=== PATIENT | female | born 1950 | race Caucasian/White ===

== ENCOUNTER 2022-01-21 12:49 | Emergency (ER) | payer MEDICARE, BC ==
[~2022-01-21] VITALS: Ht 162.6 cm; Wt 109.1 kg
[2022-01-21] MEDS ORDERED: CRUTCHES MC (16:09)
[2022-01-21] MEDS ORDERED: NORCO 325 MG-51 TAB PO (16:09)
[2022-01-21 17:10] VITALS: BP 137/80; PULSE 71; TEMP 98.1
== END 2022-01-21 17:10 | disposition home or self-care (01) ==
LOC: COL.ER 12:49
DX: S82.832A Other fracture of upper and lower end of left fibula, initial encounter for closed fracture (principal); M25.552 Pain in left hip; E66.01 Morbid (severe) obesity due to excess calories; Z68.41 Body mass index [BMI] 40.0-44.9, adult; W18.30XA Fall on same level, unspecified, initial encounter
CPT/HCPCS: J2270